=== PATIENT | male | born 2000 | race Caucasian/White ===

== ENCOUNTER 2018-11-08 13:21 | Emergency (ER) | payer BC ==
[2018-11-08 14:20] VITALS: BP 129/81
--- NOTE | 2018-11-08 14:30 | UC ---
Eye Complaint HPI - HPI Summary HPI Summary: 18 y/o male presents to the urgent care c/o RT upper eye lid red and painful at touch since yesterday morning. Watery eye yesterday. He has applying warm compresses to alleviate symptoms. Marisol at touch is mild 2 associated w/ mild selling this morning. Pt denies fever, photophobia, dizziness, FAGAN, SOB, hcest pain, abdominal pain, N/V/D. - History of Current Complaint Chief Complaint: UCEye Stated Complaint: RIGHT EYE COMPLAINT Time Seen by Provider: 11/08/18 14:28 Hx Obtained From: Patient Onset/Duration: Gradual Onset, Lasting Days - 2 days, Worse Since - this morning Timing: Days - 2 days Severity Initially: Mild Severity Currently: Moderate Pain Intensity: 6 Pain Scale Used: 0-10 Numeric Location of Injury: Eye Lid (upper) - RT upper eyelid swelling and painful Character: Dull Aggravating Factor(s): Blinking Alleviating Factor(s): Nothing Associated Signs And Symptoms: Positive: Drainage (Clear), Swelling - mild upper eyelid. Negative: Photophobia, Drainage (Purulent), Fever - Risk Factors Penetrating Injury Risk Factor: Negative Globe Rupture Risk Factors: Negative Acute Glaucoma Risk Factors: Negative Optic Artery Occlusion Risk Factors: Negative - Allergies/Home Medications Allergies/Adverse Reactions: Allergies Allergy/AdvReac Type Severity Reaction Status Date / Time No Known Allergies Allergy Verified 11/08/18 14:20 PMH/Surg Hx/FS Hx/Imm Hx Previously Healthy: Yes - Pt denies PMHX - Surgical History Surgical History: None - Family History Known Family History: Positive: None - Pt denies FMHX - Social History Occupation: Student Lives: With Family Alcohol Use: Occasionally Substance Use Type: None Smoking Status (MU): Never Smoked Tobacco - Immunization History Vaccination Up to Date: Yes Review of Systems All Other Systems Reviewed And Are Negative: Yes Constitutional: Positive: Negative Skin: Positive: Negative Eyes: Positive: Other - RT upper eyelid painful, red and swollen. Negative: Eye Redness, Photophobia ENT: Positive: Negative Respiratory: Positive: Negative Cardiovascular: Positive: Negative Gastrointestinal: Positive: Negative Genitourinary: Positive: Negative Motor: Positive: Negative Neurovascular: Positive: Negative Musculoskeletal: Positive: Negative Neurological: Positive: Negative Psychological: Positive: Negative Is Patient Immunocompromised?: No Physical Exam - Summary Physical Exam Summary: Vital Signs Reviewed: Yes General: Well appearing, well nourished adolescent male in no apparent pain distress Eyes: Positive: Conjunctiva Inflamed - Visual acuity: WNL,Visual lee: full to confrontation.mild periorbital soft tissue swelling at the RT upper eyelid with erythema and white small pustule in the medial side of eyelid, tender to palpation. PERRLA, EOMI intact w/out limitation or complaint of pain. eyelashes clear. mild tearing and yellowish drainage observed. No ciliary flush. No chemosis, No photophobia. Normal fundoscopic exam; no proptosis, exophthalmos, nystagmus. ENT: Positive: Normal ENT inspection, Hearing grossly normal, Pharynx normal, Nasal congestion, Nasal drainage - clear, TMs normal - B/L external ear canal clear , TM's WNL. Negative: Tonsillar swelling, Tonsillar exudate Neck: Positive: Supple, Nontender, No Lymphadenopathy Respiratory: Positive: Chest nontender, Lungs clear, Normal breath sounds, No respiratory distress Cardiovascular: Positive: RRR, No Murmur, Pulses Normal, Brisk Capillary Refill Abdomen Description: Positive: Nontender, No Organomegaly, Soft. Negative: CVA Tenderness (R), CVA Tenderness (L) Bowel Sounds: Positive: Present Musculoskeletal: Positive: Strength Intact, ROM Intact, No Edema Neurological Exam: Normal Psychological Exam: Normal Skin Exam: Normal Triage Information Reviewed: Yes Vital Signs: Initial Vital Signs Temp 98.8 F 11/08/18 14:14 Pulse 57 11/08/18 14:14 Resp 18 11/08/18 14:14 BP 129/81 11/08/18 14:14 Pulse Ox 100 11/08/18 14:14 Eye Complaint Course/Dx - Course Course Of Treatment: 18 y/o male presents to the urgent care c/o RT upper eye lid red and painful at touch since yesterday morning. Watery eye yesterday. He has applying warm compresses to alleviate symptoms. Marisol at touch is mild 2 associated w/ mild selling this morning. Pt denies fever, photophobia, dizziness, FAGAN, SOB, hcest pain, abdominal pain, N/V/D. Hx obtained. Pt with a RT upper eyelid internal hordeolum on examination. Pt declined Erythormycin Ophthalmic Ointment and requested eye drops. PT advised to apply warm compresses and massage the eye with gentle pressure 4-5 times for 10-15min throughout the day. Then apply ABX and if not improvement of symptoms to f/u with activity specialist Dr Melendez or Immigration Inspector for further evaluation and treatment. PT understood and agreed with plan of care w/ plan of care. - Differential Dx/Diagnosis Differential Diagnosis/HQI/PQRI: Conjunctivitis, Keratitis, Periorbital Cellulitis, Orbital Cellulitis, Uveitis Provider Diagnosis: Hordeolum internum of right upper eyelid Discharge - Sign-Out/Discharge Documenting (check all that apply): Patient Departure - D/C home All imaging exams completed and their final reports reviewed: No Studies - Discharge Plan Condition: Stable Disposition: HOME Prescriptions: Ciprofloxacin 0.3% OPTH.TAD* [Cipro 0.3% Opth*] 1 drop RIGHT EYE Q2H #1 btl Patient Education Materials: Lydia (ED) Referrals: [facility] [place] [facility] [Outside] - 3 Days Lindy Melendez MD [Medical Doctor] - If Needed Additional Instructions: 1-Please apply ophthalmic ointment in your son's RT eye as directed. Please apply warm compresses and massage the eye with gentle pressure 4-5 times for 10- 15min throughout the day 2- If you do not improve or if symptoms worsen please f/u with activity specialist or your PCP in 3 days for further evaluation and treatment - Billing Disposition and Condition Condition: STABLE Disposition: Home
== END 2018-11-08 15:11 | disposition home or self-care (01) ==
LOC: UCCORT 13:21
DX: H00.021 Hordeolum internum right upper eyelid (principal)
CPT/HCPCS: 99202; G0463

== ENCOUNTER 2019-08-12 12:38 | Emergency (ER) | payer BC ==
[2019-08-12 13:05] VITALS: BP 149/90
--- NOTE | 2019-08-12 13:25 | UC ---
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 This happened on Friday 3 days ago. No other injury. - History of Current Complaint Chief Complaint: UCLowerExtremity Stated Complaint: RT KNEE/LEFT FOOT COMPLAINT Hx Obtained From: Patient Onset/Duration: Sudden Onset Severity Initially: Moderate Severity Currently: Mild Pain Intensity: 7 Character: Dull, Aching Aggravating Factor(s): Movement, Weight Bearing Alleviating Factor(s): Rest Able to Bear Weight: Yes - Allergies/Home Medications Allergies/Adverse Reactions: Allergies Allergy/AdvReac Type Severity Reaction Status Date / Time No Known Allergies Allergy Verified 08/12/19 13:00 Home Medications: Home Medications Ibuprofen TAB* [Advil TAB*] 200 mg PO ONCE PRN 08/12/19 [History Confirmed 08/12] PMH/Surg Hx/FS Hx/Imm Hx - Additional Past Medical History Additional PMH: Raynaud's Previously Healthy: Yes - Surgical History Surgical History: None - Family History Known Family History: Positive: None - Pt denies FMHX - Social History Occupation: Student Lives: Dormitory/Roommates Alcohol Use: Occasionally Substance Use Type: None Smoking Status (MU): Never Smoked Tobacco - Immunization History Vaccination Up to Date: Yes Review of Systems All Other Systems Reviewed And Are Negative: Yes Skin: Positive: Other - She has a superficial abrasion to his anterior right knee. Musculoskeletal: Positive: Other: - Pain right knee and lateral left foot. Is Patient Immunocompromised?: No Physical Exam Triage Information Reviewed: Yes Appearance: Well-Appearing, No Pain Distress, Well-Nourished Vital Signs: Initial Vital Signs Temp 98.4 F 08/12/19 13:01 Pulse 80 08/12/19 13:01 Resp 16 08/12/19 13:01 BP 149/90 08/12/19 13:01 Pulse Ox 98 08/12/19 13:01 Vital Signs Reviewed: Yes Musculoskeletal: Positive: Strength Intact, ROM Intact, Other: - Good peripheral pulses, neuro sensation and capillary refill, patellar and knee ligaments are intact. Lateral left foot is minimally tender on palpation with no deformity, bruising, erythema or swelling noted. Neurological: Positive: Alert, Muscle Tone Normal Psychological Exam: Normal Skin: Positive: Other - Superficial abrasion anterior right knee. No deformity , erythema, bruising or swelling is noted. Knee Pain Course/Dx - Course Course Of Treatment: Right knee x-ray: Negative Left Foot x-ray: Negative The patient is comfortable here and ambulates without difficulty. He is going to see an orthopedist if he has continued pain over the next 5-7 days without improvement. He is not involved in any sports. - Differential Dx/Diagnosis Provider Diagnosis: Right knee sprain, Sprain of left foot Discharge ED - Sign-Out/Discharge Documenting (check all that apply): Patient Departure All imaging exams completed and their final reports reviewed: Yes - Discharge Plan Condition: Good Disposition: HOME Patient Education Materials: Knee Sprain (ED), Foot Sprain (ED) Referrals: Quan Cantrell MD [Medical Doctor] - No Primary Care Phys,NOPCP [Primary Care Provider] - Additional Instructions: May continue Tylenol every 4 hours as needed for pain or alternate with Motrin every 8 hours. Definite follow-up with the orthopedist if you have continued knee pain over the next 4-5 days. - Billing Disposition and Condition Condition: GOOD Disposition: Home
== END 2019-08-12 14:09 | disposition home or self-care (01) ==
LOC: UCCORT 12:38
DX: S83.91XA Sprain of unspecified site of right knee, initial encounter (principal); S93.602A Unspecified sprain of left foot, initial encounter; W00.0XXA Fall on same level due to ice and snow, initial encounter; Y93.39 Activity, other involving climbing, rappelling and jumping off; Y92.9 Unspecified place or not applicable
CPT/HCPCS: 99211; G0463